=== PATIENT | male | born 1980 | race African-American/Black ===

== ENCOUNTER 2017-08-06 11:53 | Emergency (ER) | payer OTHER ==
[2017-08-06 12:26] LABS: #Eosinphils 0.2 thou/uL (0.0-0.7); #Lymphocytes 2.3 thou/uL (1.20-3.40); #Monocytes 0.6 thou/uL (0.11-0.59); %Basophils 0.7 % (0.0-1.0); %Eosinophils 3.5 % (0.0-10.0); %Lymphocytes 37.2 % (21.0-51.0); %Monocytes 9.4 % (0.0-10.0); Hematocrit 42.2 % (42.0-52.0); Mean Platelet Volume 9.9 fL (7.4-10.4); Red Blood Cell (RBC) Count 5.04 mill/uL (4.70-6.10)
[2017-08-06 12:51] LABS: ALT (SGPT) 14 U/L (8-55); AST (SGOT) 17 U/L (5-34); Alkaline Phosphatase 50 U/L (40-150); Anion Gap 8 mmol/L (10-20); BUN (Urea Nitrogen) 11 mg/dL (8.9-20.6); Bilirubin, Total 1.1 mg/dL (0.2-1.2); CK (CPK) 171 U/L (30-200); Calc. Creatinine Clearance 0 mL/min (70-130); Calcium 9.1 mg/dL (7.8-10.44); Carbon Dioxide 29 mmol/L (22-29); Chloride 108 mmol/L (98-107); Estimated GFR-MDRD Greater than 90; Globulin 2.6 g/dL (2.4-3.5); Protein, Total 6.8 g/dL (6.0-8.3)
[2017-08-06 12:57] LABS: Troponin I Less than 0.010 ng/mL (< 0.028)
--- NOTE | 2017-08-06 12:58 | RAD ---
RADIOGRAPH CHEST 1 VIEW: HISTORY: 36-year-old male with acute chest pain. FINDINGS: The visualized lung gay are clear. The cardiomediastinal silhouette and hilar shadows are normal. The lateral costophrenic angles are sharp. The osseous structures appear normal. There is no pneu mothorax. IMPRESSION: Negative. robbin POS: PRINCESS
== END 2017-08-06 13:21 | disposition home or self-care (01) ==
LOC: ERS 11:53
DX: R07.89 Other chest pain (principal); F17.210 Nicotine dependence, cigarettes, uncomplicated
CPT/HCPCS: 36415; 71010; 80053; 82553; 83690; 84484; 85025; 93005; 94760; 99406

== ENCOUNTER 2017-10-07 17:42 | Emergency (ER) | payer OTHER | END 2017-10-07 20:01 | disposition left against medical advice (07) | LOC: ERS 17:42 | DX: Z53.21 Procedure and treatment not carried out due to patient leaving prior to being seen by health care provider (principal) ==

== ENCOUNTER 2019-08-10 14:33 | Emergency (ER) | payer OTHER, SELFPAY ==
--- NOTE | 2019-08-10 14:51 | RAD ---
XR Chest Pa Lat STANDARD HISTORY: Chest pain COMPARISON: 08/06/2017 FINDINGS: The heart size is normal. The lungs are well expanded without focal areas of consolidation, pneumothorax or pleural effusions. IMPRESSION: No radiographic evidence of acute cardiopulmonary process.
== END 2019-08-10 17:30 | disposition home or self-care (01) ==
LOC: ERS 14:33
DX: J45.901 Unspecified asthma with (acute) exacerbation (principal); F17.210 Nicotine dependence, cigarettes, uncomplicated
CPT/HCPCS: 71046; 93005; 94640; J7620

== ENCOUNTER 2022-04-20 11:04 | Emergency (ER) | payer BC, SELFPAY ==
[2022-04-20] MEDS ORDERED: Ibuprofen 200 MG TAB ONE (12:19)
== END 2022-04-20 12:24 | disposition home or self-care (01) ==
LOC: ERS 11:04
DX: B34.9 Viral infection, unspecified (principal); F17.210 Nicotine dependence, cigarettes, uncomplicated
CPT/HCPCS: 87804; 99283

== ENCOUNTER 2023-11-09 07:44 | Emergency (ER) | payer BC ==
[2023-11-09] MEDS ORDERED: Ibuprofen 800 MG TAB ONE (08:09)
== END 2023-11-09 08:38 | disposition home or self-care (01) ==
LOC: ERS 07:44
DX: M79.671 Pain in right foot (principal); F17.210 Nicotine dependence, cigarettes, uncomplicated
CPT/HCPCS: 99283

== ENCOUNTER 2024-03-31 19:02 | Emergency (ER) | payer OTHER ==
[2024-03-31] MEDS ORDERED: methylPREDNISolone Sod Succ/PF 125 MG/2 ML VIAL ONE (19:50)
[2024-03-31 19:52] LABS: ALT (SGPT) 10 U/L (8-55); AST (SGOT) 18 U/L (5-34); Albumin 4.1 g/dL (3.5-5.0); Alkaline Phosphatase 64 U/L (40-110); Anion Gap 9 mmol/L (10-20); BUN (Urea Nitrogen) 9 mg/dL (8.9-20.6); Bilirubin, Total 0.8 mg/dL (0.2-1.2); Calc. Creatinine Clearance 0 mL/min (70-130); Calcium 9.1 mg/dL (7.8-10.44); Carbon Dioxide 29 mmol/L (22-29); Chloride 107 mmol/L (98-107); Estimated GFR 82; Globulin 2.9 g/dL (2.4-3.5); Glucose 71 mg/dL (70-105); Lipase 22 U/L (8-78); Potassium 4.3 mmol/L (3.5-5.1); Sodium 141 mmol/L (136-145)
[2024-03-31 19:55] LABS: #Basophils 0.04 10x3/uL (0.0-0.2); %Basophils 0.9 % (0.0-1.0); %Eosinophils 3.5 % (0.0-10.0); %Lymphocytes 48.2 % (21.0-51.0); %Monocytes 11.5 % (0.0-10.0); %Neutrophils 35.5 % (42.0-75.0); Hematocrit 41.1 % (42.0-52.0); Hemoglobin 13.9 g/dL (14.0-18.0); Mean Corpuscular HGB CONC 33.8 g/dL (32.0-36.0); Mean Corpuscular Hemoglobin 25.3 pg (27.0-31.0); Mean Corpuscular Volume 74.9 fL (78.0-98.0); Mean Platelet Volume 12.5 fL (7.4-10.4); Platelet Count 147 10x3/uL (130-400); RBC Distribution Width 13.3 % (11.5-14.5); Red Blood Cell (RBC) Count 5.49 mill/uL (4.70-6.10)
[2024-03-31 19:57] LABS: Troponin I Less than 0.010 ng/mL (< 0.028)
[2024-03-31 20:24] LABS: Anisocytosis SLIGHT = 6-15 cells HPF (0-5); Microcytosis SLIGHT = 6-15 cells HPF (0-5); Platelet Adequacy Comment Platelets Normal; Polychromasia SLIGHT = 2-3 cells HPF (0-2); Target Cells SLIGHT = 2-5 cells HPF (0-1); Tear Drops SLIGHT = 2-5 cells HPF (0-1)
== END 2024-03-31 20:57 | disposition home or self-care (01) ==
LOC: ERS 19:02
DX: J20.9 Acute bronchitis, unspecified (principal); F17.210 Nicotine dependence, cigarettes, uncomplicated
CPT/HCPCS: 71045; 80053; 83690; 84484; 85025; 93005; 96374; J2930

== ENCOUNTER 2024-04-07 16:13 | Emergency (ER) | payer OTHER ==
[2024-04-07] MEDS ORDERED: Ketorolac Tromethamine 30 MG (1 mL) VIAL ONE (18:06)
[2024-04-07 18:18] LABS: Influenza A by NAA Not Detected (NotDetected); Influenza B by NAA Not Detected (NotDetected); SARS-CoV-2 NAA Rapid Test Not Detected (NotDetected)
== END 2024-04-07 18:30 | disposition home or self-care (01) ==
LOC: ERS 16:13
DX: R05.9 Cough, unspecified (principal); F17.210 Nicotine dependence, cigarettes, uncomplicated
CPT/HCPCS: 71046; 96372; J1885